=== PATIENT | female | born 1935 | race Caucasian/White ===

== ENCOUNTER 2025-01-09 10:04 | Emergency (ER) | payer OTHER ==
[~2025-01-09] VITALS: Ht 157.5 cm; Wt 64.5 kg
[2025-01-09] MEDS ORDERED: IOHEXOL 350 MG/ML 100 ML VIAL ONE (10:30)
[2025-01-09 10:38] LABS: BASOPHILS % (AUTO) 0.4 % (0.0-2.0); EOSINOPHILS % (AUTO) 1.5 % (1.0-6.0); HEMATOCRIT 39.4 % (36-46); HEMOGLOBIN 12.9 g/dL (12.0-16.0); LYMPHOCYTES # (AUTO) 1.6 K/uL (1.0-4.8); LYMPHOCYTES % (AUTO) 17.2 % (22.0-44.0); MEAN CORPUSCULAR HEMOGLOBIN 30.1 pg (26.0-34.0); MEAN CORPUSCULAR HGB CONC 32.8 G/dL (31.0-37.0); MEAN CORPUSCULAR VOLUME 92 fL (80-100); MONOCYTES # (AUTO) 1.1 K/uL (0.1-1.0); MONOCYTES % (AUTO) 12.5 % (2.0-9.0); NEUTROPHILS # (AUTO) 6.2 K/uL (1.8-7.7); NEUTROPHILS % (AUTO) 68.4 % (40.0-70.0); PLATELET COUNT (AUTO) 267 K/uL (150-450); RED BLOOD CELL COUNT(AUTO) 4.29 MIL/uL (4.00-5.20); RED CELL DISTRIBUTION WIDTH 14.8 % (11.5-14.5)
[2025-01-09 10:44] LABS: ANION GAP 8 mmol/L (8-16); CALCIUM, TOTAL 8.3 mg/dL (8.8-10.5); CARBON DIOXIDE 24 mmol/L (22-29); CHLORIDE 97 mmol/L (98-107); CREATININE 0.74 mg/dL (0.60-1.30); GLOMERULAR FILTR. RATE CALC > 60 mL/min (>60); GLUCOSE,RANDOM 94 mg/dL (70-110); POTASSIUM 4.2 mmol/L (3.5-5.1); SODIUM SERUM 129 mmol/L (136-145); UREA NITROGEN, BLOOD 18 mg/dL (7-18)
[2025-01-09 10:46] LABS: HEMOGLOBIN A1C 5.2 % (3.8-5.6)
[2025-01-09 10:52] LABS: PROTHROMBIN TIME 10.3 SEC (9.4-11.6)
[2025-01-09 10:53] LABS: ALANINE AMINOTRANSFERASE 11 U/L (12-78); ALBUMIN 2.9 g/dL (3.4-5.0); ALKALINE PHOSPHATASE 71 U/L (46-116); ASPARTATE AMINOTRANSFERASE 21 U/L (15-37); BILIRUBIN,TOTAL 0.7 mg/dL (0.1-1.0); CHOL/HDL RATIO 1.9 (3.9-5.7); CHOLESTEROL 140 mg/dL (131-200); HDL CHOLESTEROL 73 mg/dL (40-60); LDL CHOL (CALC.) 52 mg/dL (0-130); TOTAL PROTEIN, SERUM 6.7 g/dL (6.4-8.2); TRIGLYCERIDES 75 mg/dL (15-150); TROPONIN I-HIGH SENSITIVITY 13 ng/L (<51)
[2025-01-09] MEDS ORDERED: LABETALOL HCL 5 MG/ML 20 ML VIAL IVP ONE (11:27)
[2025-01-09] MEDS: LABETALOL HCL 5 MG/ML 20 ML VIAL IVP ONE ×2 (11:35→12:17)
[2025-01-09 11:40] VITALS: TEMP 98.1
[2025-01-09 13:13] VITALS: BP 140/59; PULSE 64; RESP 15; O2SAT 98
== END 2025-01-09 13:10 | disposition short-term general hospital (02) ==
LOC: EMS 10:04
DX: I63.9 Cerebral infarction, unspecified (principal); R41.82 Altered mental status, unspecified; Z88.0 Allergy status to penicillin; Z88.1 Allergy status to other antibiotic agents; Z79.01 Long term (current) use of anticoagulants; Z86.73 Personal history of transient ischemic attack (TIA), and cerebral infarction without residual deficits
CPT/HCPCS: 99291; 70496; 96374; 71045; 80061; 80053; 83036; 84484; 85025; 85610; 85730; 86850; 86900; 86901; 36415; 70498; 82948; 93005; 96376; 70450; Q9967; J3490